=== PATIENT | male | born 1995 | race Two or more races ===

== ENCOUNTER 2023-04-03 17:33 | Emergency (ER) | payer MEDICAID, OTHER ==
[~2023-04-03] VITALS: Ht 177.8 cm; Wt 161.1 kg
[2023-04-03 17:58] VITALS: BP 149/95; PULSE 93; RESP 18; O2SAT 98
[2023-04-03] MEDS ORDERED: MUPI2OIN2 EX (18:27)
[2023-04-03] MEDS ORDERED: AUG875T PO (18:27)
[2023-04-03] MEDS ORDERED: AMOXICILLIN/CLAVUL 875 MG TAB PO ONE (18:30)
[2023-04-03] MEDS ORDERED: NEOMYCIN-BACITRACIN-POLYM UNITDOSE PKG TOP OINT TOP ONE (18:30)
== END 2023-04-03 20:35 | disposition home or self-care (01) ==
LOC: ER 17:33
DX: S81.831A Puncture wound without foreign body, right lower leg, initial encounter (principal); W54.0XXA Bitten by dog, initial encounter; Y93.89 Activity, other specified; Y92.89 Other specified places as the place of occurrence of the external cause; Y99.8 Other external cause status